=== PATIENT | male | born 1990 | race Caucasian/White ===

== ENCOUNTER → 2022-07-16 | Outpatient (CLI) | payer BC ==
--- NOTE | 2022-07-16 10:42 | XR ---
EXAMINATION TYPE: XR orbit pre-MRI foreign body DATE OF EXAM: 07/16/2022 COMPARISON: NONE HISTORY: M54.16, M54.59, R53.1 TECHNIQUE: 2 views of the orbits are submitted. FINDINGS: Right temporal craniotomy screws and plates in place. Correlate with cargo vessel stewardess if ferrom agnetic. No additional radiopaque foreign bodies are seen at this time. IMPRESSION: Clear plates and screws with cargo vessel stewardess prior to MRI.
--- NOTE | 2022-07-16 10:43 | XR ---
EXAMINATION TYPE: XR skull limited DATE OF EXAM: 07/16/2022 10:23 AM INDICATION: Patient age:Male; 32 years old; Reason for study: M54.16,M54.59,R53.1; [facility]. COMPARISON: None. TECHNIQUE: Frontal and lateral views of the skull. FINDINGS: Fixation plates are seen on the right skull. No additional radiopaque foreign bodies. Soft tissues and osseous structures are within normal limits. IMPRESSION: Right skull fixation plates. No additional radiopaque foreign bodies. No evidence of fracture.
== END | disposition home or self-care (01) ==
LOC: RADMRIMAIN 09:48
PROVIDERS: ATTEND Physician Assistant
DX: M54.16 Radiculopathy, lumbar region (principal); M54.59 Other low back pain; R53.1 Weakness; Z18.10 Retained metal fragments, unspecified
CPT/HCPCS: 70030; 70250